=== PATIENT | male | born 1945 | race Caucasian/White ===

== ENCOUNTER 2018-09-19 09:11 | Emergency (ER) | payer MEDICARE ==
[~2018-09-19] VITALS: Ht 182.9 cm; Wt 84.0 kg
[2018-09-19 09:14] VITALS: BP 149/86
--- NOTE | 2018-09-19 10:03 | NUR ---
URI-type s/s x 2 days. Pt eupneic, WPD, no SOB while walking back to room from lobby.
[2018-09-19 10:45] LABS: RAPID INFLUENZA A Negative (Negative); RAPID INFLUENZA B Negative (Negative)
== END 2018-09-19 11:10 | disposition home or self-care (01) ==
LOC: ED 11:00
DX: J06.9 Acute upper respiratory infection, unspecified (principal); I10 Essential (primary) hypertension
CPT/HCPCS: 71046; 87400; 99284